=== PATIENT | male | born 1955 | race Caucasian/White ===

== ENCOUNTER 2019-03-29 12:53 | Observation (INO) ==
[~2019-03-29 12:53] MED LIST: LIDOCAINE W/ SODIUM BICARB 0.5 ML SYR SUBD PRN
[2019-03-29] MEDS ORDERED: Lactated Ringers 1,000 ML PRIMARY IV ONE (13:07)
[2019-03-29] MEDS ORDERED: LIDOCAINE W/ SODIUM BICARB 0.5 ML SYR ONE (13:07)
[2019-03-29] MEDS: Lactated Ringers 1,000 ML PRIMARY IV SCH ×2 (13:45→17:44)
[2019-03-29] MEDS ORDERED: fentaNYL Inj 100 MCG/2 ML VIAL ONE (14:07)
[2019-03-29] MEDS ORDERED: PROPOFOL 10 MG/1 ML (200 MG/20 ML) VIAL IV ONE (14:08)
[2019-03-29] MEDS ORDERED: ONDANSETRON 4 MG/2 ML VIAL ONE (14:08)
[2019-03-29] MEDS ORDERED: OXYMETAZOLINE 0.05% 15 ML NASAL SPRAY ONE (14:14)
[2019-03-29] MEDS ORDERED: DEXAMETHASONE PF 10 MG/1 ML VIAL ONE (14:15)
[2019-03-29] MEDS ORDERED: Bacitracin Oint 14.2 gm tube 14 APPLIC/14.2 GM TUBE TOPICAL ONE (14:17)
[2019-03-29] MEDS ORDERED: LIDOCAINE HCL 1%/EPI 1:100,000 - 20 ML VIAL ONE (14:17)
[2019-03-29] MEDS ORDERED: MORPHINE SULFATE 2 MG/1 ML IVP PRN (15:15)
[2019-03-29] MEDS ORDERED: Lactated Ringers 1,000 ML PRIMARY IV SCH ×2 (15:15→16:44)
[2019-03-29] MEDS ORDERED: fentaNYL Inj 100 MCG/2 ML VIAL IVP PRN (15:15)
[2019-03-29] MEDS ORDERED: LIDOCAINE W/ SODIUM BICARB 0.5 ML SYR SUBD PRN (15:15)
[2019-03-29] MEDS ORDERED: HYDROmorphone 2 MG/1 ML IVP PRN (15:15)
[2019-03-29] MEDS ORDERED: ceFAZolin Inj 2gm (Premix) 2 GM/50 ML BAG IV ONE ×2 (15:17→15:55)
[2019-03-29] MEDS ORDERED: ceFAZolin Inj 2 GM in Sodium Chloride 0.9% 100 ML IV SCH (16:44)
[2019-03-29] MEDS: HYDROcodone-APAP 5 MG -325 MG TABLET PO PRN ×2 (18:54→23:33)
[2019-03-29] MEDS ORDERED: Simvastatin Tab 20 MG TAB PO SCH (21:00)
[2019-03-29] MEDS ORDERED: OMEPRAZOLE 20 MG CAPSULE PO SCH (21:00)
[2019-03-29] MEDS ORDERED: LOSARTAN 50 MG TABLET PO SCH (21:00)
[2019-03-30] MEDS ORDERED: Influenza 19-20 Vaccine (6mo+) 60 MCG/0.5 ML SYRINGE IM ONE (06:29)
[2019-03-30 06:49] VITALS: BP 141/79; RESP 18; TEMP 97.9; O2SAT 93
[2019-03-30] MEDS: HYDROcodone-APAP 5 MG -325 MG TABLET PO PRN ×2 (07:22→10:07)
== END 2019-03-30 10:13 | disposition home or self-care (01) ==
LOC: OR 12:53 → MED/SURG 12:53 → OPS 12:54 → MED/SURG 16:48
PROVIDERS: ADMIT Otolaryngology; ATTEND Otolaryngology